=== PATIENT | female | born 1945 | race Caucasian/White ===

== ENCOUNTER → 2020-06-08 | Outpatient (REF) | payer MEDICARE, BC ==
[2020-08-13 08:58] LABS: GLUCOSE, FASTING SEE SEPARATE REPORT MG/DL (70-100)
== END ==
LOC: M WUC 07:10
PROVIDERS: ATTEND Family Medicine
DX: R79.89 Other specified abnormal findings of blood chemistry (principal); E78.2 Mixed hyperlipidemia

== ENCOUNTER → 2020-09-03 | Outpatient (CLI) | payer MEDICARE, BC | LOC: M WUC 14:18 | PROVIDERS: ATTEND Family Medicine | DX: E11.9 Type 2 diabetes mellitus without complications (principal) ==

== ENCOUNTER → 2020-10-19 | Outpatient (CLI) | payer SELFPAY | LOC: M LABSMTC 15:08 | PROVIDERS: ATTEND Pediatrics | DX: Z20.828 Contact with and (suspected) exposure to other viral communicable diseases (principal) ==

== ENCOUNTER → 2020-12-08 | Outpatient (CLI) | payer MEDICARE, BC ==
[2020-12-08 15:51] LABS: HEMOGLOBIN A1c 6.9 %
== END ==
LOC: M WUC 10:43
PROVIDERS: ATTEND Family Medicine
DX: E11.9 Type 2 diabetes mellitus without complications (principal)

== ENCOUNTER → 2021-02-09 | Outpatient (REF) | payer MEDICARE, BC ==
[2021-02-09 16:54] LABS: HEMOGLOBIN A1c 7.5 %
== END ==
LOC: M WUC 15:52 → M LAB REF 15:52
PROVIDERS: ATTEND Family Medicine
DX: E11.9 Type 2 diabetes mellitus without complications (principal)

== ENCOUNTER → 2021-04-16 | Outpatient (CLI) | payer MEDICARE, BC ==
[2021-04-16 15:32] LABS: HEMATOCRIT 41.9 % (36.0-47.0); HEMOGLOBIN 13.2 g/dl (12.0-15.5); MEAN CORPUSCULAR HEMOGLOBIN 30.6 pg (27.0-33.0); MEAN CORPUSCULAR HGB CONC 31.5 g/dl (32.0-36.5); PLATELET COUNT, AUTOMATED 374 10^3/uL (150-450); RED BLOOD COUNT 4.32 10^6/uL (4.00-5.40); WHITE BLOOD COUNT 10.8 10^3/uL (4.0-10.0)
[2021-04-16 15:37] LABS: CHOLESTEROL RISK RATIO 2.339 (<5); URIC ACID 4.4 MG/DL (2.6-6.0)
== END ==
LOC: M WUC 13:45
PROVIDERS: ATTEND Family Medicine
DX: Z00.00 Encounter for general adult medical examination without abnormal findings (principal); E78.5 Hyperlipidemia, unspecified; N18.30 Chronic kidney disease, stage 3 unspecified

== ENCOUNTER → 2021-07-07 | Outpatient (CLI) | payer MEDICARE, BC ==
[2021-07-07 12:46] LABS: HEMOGLOBIN A1c 6.8 %
[2021-07-07 12:54] LABS: MAU/CREAT RATIO 12.8 MCG/MG (0.0-30.0)
[2021-07-07 12:58] LABS: ALBUMIN 3.4 GM/DL (3.2-5.2); BILIRUBIN,TOTAL 0.5 MG/DL (0.2-1.0); CALCIUM LEVEL 8.2 MG/DL (8.8-10.2); CREATININE FOR GFR 1.03 MG/DL (0.55-1.30); GLOMERULAR FILTRATION RATE 55.9 (>39); POTASSIUM SERUM 4.1 MEQ/L (3.5-5.1); THYROID STIMULATING HORMONE 2.38 uIU/ML (0.358-3.740); TOTAL PROTEIN 6.3 GM/DL (6.4-8.2)
== END ==
LOC: M WUC 09:45
PROVIDERS: ATTEND Family Medicine
DX: E11.9 Type 2 diabetes mellitus without complications (principal); R53.83 Other fatigue

== ENCOUNTER 2021-07-28 16:12 | Observation (INO) | payer MEDICARE, BC ==
[~2021-07-28] VITALS: Ht 157.5 cm; Wt 78.7 kg
[2021-07-28] MEDS ORDERED: FLUT11IN INH ×2 (16:20→21:43)
[2021-07-28] MEDS ORDERED: LISI40TA4 PO ×2 (16:20→21:43)
[2021-07-28] MEDS ORDERED: ATOR1TAB21 PO ×2 (16:20→21:43)
[2021-07-28] MEDS ORDERED: NAPR220C14 PO (16:20)
[2021-07-28] MEDS ORDERED: PROAAER10 INH ×2 (16:20→21:43)
[2021-07-28] MEDS ORDERED: CLAR10CA3 PO (16:21)
[2021-07-28] MEDS ORDERED: METF500T13 PO (16:21)
[2021-07-28] MEDS ORDERED: ACET-683 PO (16:21)
[2021-07-28] MEDS ORDERED: SIMV40TA20 PO (16:21)
--- NOTE | 2021-07-28 18:21 | REP ---
INDICATION: Syncope/near-syncope. COMPARISON: None. FINDINGS: The technique utilized in obtaining the radiograph has magnified the cardiac silhouette and accentuated the interstitial markings. The superior mediastinal structures are midline. The cardiac silhouette is unremarkable in size, shape, and position. The diaphragmatic surfaces of the lungs are regular, and the costophrenic angles are clear. The pulmonary guy are clear. The imaged osseous structures are intact. IMPRESSION: There is no acute cardiopulmonary disease. <Electronically signed by Justo Olivia > 07/28/21 [id number]
[2021-07-28 18:33] LABS: BASO # 0.1 10^3/uL (0.0-0.2); BASO % 0.4 % (0.0-1.0); EOS # 0.1 10^3/uL (0.0-0.5); EOS % 1.1 % (0.0-3.0); HEMATOCRIT 36.4 % (36.0-47.0); HEMOGLOBIN 12.1 g/dl (12.0-15.5); LYMPH # 3.9 10^3/uL (1.5-5.0); LYMPH % 29.3 % (24.0-44.0); MEAN CORPUSCULAR HEMOGLOBIN 31.8 pg (27.0-33.0); MEAN CORPUSCULAR HGB CONC 33.2 g/dl (32.0-36.5); MEAN CORPUSCULAR VOLUME 95.8 fl (80.0-96.0); MONO # 0.7 10^3/uL (0.0-0.8); MONO % 5.1 % (2.0-8.0); NEUTROPHILS # 8.5 10^3/uL (1.5-8.5); NEUTROPHILS % 63.6 % (36.0-66.0); PLATELET COUNT, AUTOMATED 373 10^3/uL (150-450); WHITE BLOOD COUNT 13.3 10^3/uL (4.0-10.0)
--- NOTE | 2021-07-28 18:44 | REPVR ---
PROCEDURE INFORMATION: Exam: CT Head Without Contrast Exam date and time: 07/28/2021 6:09 PM Age: 75 years old Clinical indication: Syncope and collapse TECHNIQUE: Imaging protocol: Computed tomography of the head without contrast. Radiation optimization: All CT scans at this facility use at least one of these dose optimization techniques: automated exposure control; mA and/or kV adjustment per patient size (includes targeted exams where dose is matched to clinical indication); or iterative reconstruction. COMPARISON: No relevant prior studies available. FINDINGS: Brain: There is mild parenchymal volume loss. White matter changes are demonstrated in the subcortical, centrum semiovale and periventricular white matter consistent with chronic age related small vessel ischemic changes. There is mild diffuse cerebellar atrophy. Cerebral ventricles: The degree of ventricular dilatation is normal for age and/or degree of atrophy present. Paranasal sinuses: Inflammatory changes right sphenoid sinus. Mastoid air cells: Visualized mastoid air cells are well aerated. Bones/joints: Unremarkable. No acute fracture. Soft tissues: Unremarkable. IMPRESSION: 1. There is mild parenchymal volume loss. White matter changes are demonstrated in the subcortical, centrum semiovale and periventricular white matter consistent with chronic age related small vessel ischemic changes. 2. The degree of ventricular dilatation is normal for age and/or degree of atrophy present. 3. There is mild diffuse cerebellar atrophy. Electronically signed by: Sadi Luque On 07/28/2021 18:44:46 PM
[2021-07-28 18:55] LABS: BLOOD UREA NITROGEN 11 MG/DL (7-18); CALCIUM LEVEL 8.7 MG/DL (8.8-10.2); CARBON DIOXIDE LEVEL 27 MEQ/L (21-32); CHLORIDE LEVEL 103 MEQ/L (98-107); CK-MB VALUE MASS 1.4 NG/ML (<3.6); CPK CREATINE PHOSPHOKINASE 57 U/L (26-192); CREATININE FOR GFR 1.01 MG/DL (0.55-1.30); GLOMERULAR FILTRATION RATE 57.2 (>39); GLUCOSE, FASTING 121 MG/DL (70-100); MB/CK RELATIVE INDEX 2.46 (< OR =4); POTASSIUM SERUM 4.4 MEQ/L (3.5-5.1); SODIUM LEVEL 139 MEQ/L (136-145); TROPONIN I < 0.02 NG/ML (< 0.10)
--- NOTE | 2021-07-28 19:14 | ECGEPIP ---
[facility] - ED Test Date: 2021-07-28 Pat Name: KAYLEY SALINAS Department: Room: - Gender: Female Rn Training: : 1945 Requested By: Rubens Chavis Order Number: [id number] Reading MD: Kalee Wolf Measurements Intervals [place] Rate: 94 P: 89 [place]: 136 QRS: -9 QRSD: 74 T: 33 QT: 356 QTc: 445 Interpretive Statements Normal sinus rhythm Low voltage QRS Inferior infarct , age undetermined prwp No prior Electronically Signed on 07-28-2021 19:14:20 EDT by Kalee Wolf
[2021-07-28] MEDS ORDERED: ACETAMINOPHEN TAB 650MG DOSE (2X325MG) PO PRN (19:35)
[2021-07-28] MEDS ORDERED: MAALOX 30 ML SUSP *UDC PO PRN (19:35)
[2021-07-28] MEDS ORDERED: MOM 30ML SUSPENSION UDC PO PRN (19:35)
--- NOTE | 2021-07-28 19:36 | HPEPDOC ---
[facility] Medical History & Physical Date of Admission Jul 28, 2021 Date of Service: Jul 28, 2021 Attending Physician: KIAN TOLBERT MD History and Physical CHIEF COMPLAINT: [loss of consciousness] HISTORY OF PRESENT ILLNESS: [This is a 75 y/o female with a pmh of asthma, ckd3 and niddm2 who presents to our ED via EMS on 07/28 after a syncopal event. Patient states that she was simply sitting on a stool at the [employer] store trying to buy a new phone when suddenly she was overcome by a sensation of dizziness that she has a hard time describing. Patient states that she does not remember what happened next but states that she was told she fell and woke up on the floor. Patient states that she has never passed out before. Patient states she was not told how long she was on the floor for. Patient states that as of now, her only complaint is of still feeling a bit weak and "woozy." Patient denies any headaches, vision changes, weakness, slurred speech, recent illness, recent poor oral intake, room-spinning sensations, chest pain, palpitations, paresthesias, abd pain, n/v/d/c, fevers, chills, sob.] PAST MEDICAL HISTORY: 1. [See HPI PAST SURGICAL HISTORY: 1. [Breast biopsy]. 2. [Tubal ligation]. SOCIAL HISTORY: Tobacco use:[Denies] ETOH: [Denies] Illicit drug use: [Denies] FAMILY HISTORY: Mother - cva ALLERGIES: Please see below. REVIEW OF SYSTEMS: CONSTITUTIONAL: [Denies fevers, chills]. HEENT: [Denies uri sx]. CARDIOVASCULAR: [Denies chest pain, palpitations]. RESPIRATORY: [Denies sob, cough]. GASTROINTESTINAL: [Denies abd pain, n/v/d/c]. GENITOURINARY: [Denies dysuria]. SKIN: [Denies rash]. MUSCULOSKELETAL: [Denies acute joint/back pain]. NEUROLOGICAL: [See HPI]. ENDOCRINE: [Hx of DM]. HEMATOLOGIC/LYMPHATIC: [Denies hx of vte]. HOME MEDICATIONS: Please see below. PHYSICAL EXAMINATION: VITAL SIGNS: Please see below. GENERAL APPEARANCE: [This is a pleasant 75 y/o female who is alert and oriented to all questioning. She does not appear to be in any acute distress]. HEENT: [No mass or lesion. EOMI. No scleral icterus. Nares patent. Oral mucosa moist]. CARDIOVASCULAR: [Tachy rate, regular rhythm]. LUNGS: [Good air flow b/l. No wheezing, rales, rhonchi]. ABDOMEN: [Nondistended. Nontender]. MUSCULOSKELETAL: [No joint deformity]. EXTREMITIES: [No pedal edema. No overlying skin changes. Pulses intact]. NEUROLOGICAL: [Speech clear. Patient moves all fours freely. A+Ox3. No focal deficits]. PSYCHIATRIC: [Mood and affect appear appropriate]. LABORATORY DATA: See below. IMAGING: [CXR: FINDINGS: The technique utilized in obtaining the radiograph has magnified the cardiac silhouette and accentuated the interstitial markings. The superior mediastinal structures are midline. The cardiac silhouette is unremarkable in size, shape, and position. The diaphragmatic surfaces of the lungs are regular, and the costophrenic angles are clear. The pulmonary guy are clear. The imaged osseous structures are intact. IMPRESSION: There is no acute cardiopulmonary disease. Head CT: FINDINGS: Brain: There is mild parenchymal volume loss. White matter changes are demonstrated in the subcortical, centrum semiovale and periventricular white matter consistent with chronic age related small vessel ischemic changes. There is mild diffuse cerebellar atrophy. Cerebral ventricles: The degree of ventricular dilatation is normal for age and/or degree of atrophy present. Paranasal sinuses: Inflammatory changes right sphenoid sinus. Mastoid air cells: Visualized mastoid air cells are well aerated. Bones/joints: Unremarkable. No acute fracture. Soft tissues: Unremarkable. IMPRESSION: 1. There is mild parenchymal volume loss. White matter changes are demonstrated in the subcortical, centrum semiovale and periventricular white matter consistent with chronic age related small vessel ischemic changes. 2. The degree of ventricular dilatation is normal for age and/or degree of atrophy present. 3. There is mild diffuse cerebellar atrophy. ] MICROBIOLOGY: Please see below. ASSESSMENT: [This is a 75 y/o female with a pmh of asthma, ckd3 and niddm2 who presents to our ED via EMS on 07/28 after a syncopal event. Patient states that she was simply sitting on a stool at the [employer] store trying to buy a new phone when suddenly she was overcome by a sensation of dizziness that she has a hard time describing. Patient states that she does not remember what happened next but states that she was told she fell and woke up on the floor. Workup performed up to this point has been grossly negative]. . PLAN: 1. [Syncope - Most likely vasovagal. Need to r/o tia, cardiac source of syncope - CT head negative, will order f/u cta head/neck - ECHO w bubble study ordered for the am - will check a1c to r/o recurrent hypoglycemia - will check orthostatic vitals - EKG in the ED unremarkable, will keep patient on cardiac telemetry overnight - will check lipid panel - admit to med surg tele under obs for syncope w/u 2. DM - sliding scale coverage - hypoglycemic protocol 3. Asthma - not in acute exacerbation - continue at home inhalers - continue claritin 4. HTN - continue lisinopril, amlodipine 5. HLD - continue atorvastatin 6. Gout - continue allopurinol, colchicine 7 Class 1 obesity -complicates care DVT Prophylaxis - lovenox]. Vital Signs Vital Signs Date Time Temp Pulse Resp B/P (MAP) Pulse Ox O2 Delivery O2 Flow Rate FiO2 07/28/21 17:15 140/70 (93) 07/28/21 17:12 88 97 07/28/21 16:12 98.6 16 Room Air Laboratory Data Labs 24H Laboratory Tests 2 07/28/21 17:59: Immature Granulocyte % (Auto) 0.5, Neutrophils (%) (Auto) 63.6, Lymphocytes (%) (Auto) 29.3, Monocytes (%) (Auto) 5.1, Eosinophils (%) (Auto) 1.1, Basophils (%) (Auto) 0.4, Neutrophils # (Auto) 8.5, Lymphocytes # (Auto) 3.9, Monocytes # (Auto) 0.7, Eosinophils # (Auto) 0.1, Basophils # (Auto) 0.1, Nucleated Red Blood Cells % (auto) 0.0, Anion Gap 9, Glomerular Filtration Rate 57.2, Calcium Level 8.7L, Total Creatine Kinase 57, Creatine Kinase MB 1.4, Creatine Kinase MB Relative Index 2.46, Troponin I < 0.02, Thyroid Stimulating Hormone (TSH) 2.180 CBC/BMP Laboratory Tests 07/28/21 17:59 Home Medications Scheduled Acetaminophen (Tylenol Extra Strength) 500 Mg Tablet, 1,000 MG PO BID Albuterol Sulfate (Proair Hfa) 8.5 Gm Hfa.aer.ad, 2 PUFFS INH BID Allopurinol (Allopurinol) 100 Mg Tablet, 100 MG PO BID Amlodipine Besylate (Amlodipine Besylate) 10 Mg Tablet, 10 MG PO DAILY Ascorbic Acid/Vitamin E/Biotin (Hair Skin Nails-Biotin Gummies) 1 Each Tab.chew, 2 CHW PO DAILY Atorvastatin Calcium (Atorvastatin Calcium) 20 Mg Tablet, 20 MG PO QHS Budesonide/Formoterol (Symbicort 160-4.5 Mcg Inhaler) 6 Gm Hfa.aer.ad, 2 PUFF IN H BID Cholecalciferol (Vitamin D3) (Vitamin D3) 25 Mcg Tab.chew, 50 MCG PO DAILY Fluticasone Propionate (Flovent Hfa) 110 Mcg/Act Aer.w.adap, 2 PUFF INH BID Folic Acid/Multivit-Min/Lutein (Multi-Vitamin Gummies) 1 Each Tab.chew, 2 CHW PO DAILY Lisinopril (Lisinopril) 40 Mg Tablet, 40 MG PO DAILY Loratadine (Loratadine) 10 Mg Tablet, 10 MG PO DAILY Metformin HCl (Metformin HCl) 1,000 Mg Tablet, 1,000 MG PO BID Naproxen Sodium (Aleve) 220 Mg Tablet, 440 MG PO BID Vits A,C,E/Lutein/Minerals (Ocuvite with Lutein Tablet) 1 Each Tablet, 1 TAB PO DAILY Scheduled PRN Colchicine (Colchicine) 0.6 Mg Tablet, 0.6 MG PO DAILY PRN for GOUT SYMPTOMS Miscellaneous Medications Ascorbic Acid (Vitamin C) 500 Mg Tab.chew, 1,000 MG PO Allergies Coded Allergies: Sulfa (Sulfonamide Antibiotics) (Verified Allergy, Unknown, 07/28/21) niacin (Verified Allergy, Unknown, 07/28/21) A-FIB/CHADSVASC A-FIB History Current/History of A-Fib/PAF?: No ALYSHA WRIGHT Jul 28, 2021 19:35 KIAN TOLBERT MD Aug 02, 2021 03:03
[2021-07-28] MEDS ORDERED: ISOVUE-370 76% 100ML VIAL As Ordered ONE (19:45)
[2021-07-28 19:52] LABS: CHOLESTEROL LEVEL 146 MG/DL (<200); CHOLESTEROL RISK RATIO 2.517 (<5); HDL CHOLESTEROL 58 MG/DL (>40); LDL CHOLESTEROL 51 MG/DL (<100); NON-HDL-C 88 MG/DL; TRIGLYCERIDES LEVEL 183 MG/DL (<150)
--- NOTE | 2021-07-28 20:32 | REPVR ---
PROCEDURE INFORMATION: Exam: CT Angiography Head With Contrast, Arteriography Exam date and time: 07/28/2021 8:10 PM Age: 75 years old Clinical indication: Syncope and collapse TECHNIQUE: Imaging protocol: Computed tomography angiography of the head with contrast. Exam focused on the arteries. 3D rendering (Not supervised by radiologist): MIP and/or 3D reconstructed images were created by the technologist. Radiation optimization: All CT scans at this facility use at least one of these dose optimization techniques: automated exposure control; mA and/or kV adjustment per patient size (includes targeted exams where dose is matched to clinical indication); or iterative reconstruction. Contrast material: ISOVUE 370; Contrast volume: 75 ml; Contrast route: INTRAVENOUS (IV); COMPARISON: CT Head without contrast 07/28/2021 5:40 PM FINDINGS: ANTERIOR CIRCULATION: Right internal carotid artery: Atherosclerotic changes demonstrated in the right cavernous carotid artery. No significant stenosis. Right middle cerebral artery: Unremarkable. No occlusion or significant stenosis. No aneurysm. Right anterior cerebral artery: Unremarkable. No occlusion or significant stenosis. No aneurysm. Left internal carotid artery: Atherosclerotic changes demonstrated in the left cavernous carotid artery. No significant stenosis. Left middle cerebral artery: Unremarkable. No occlusion or significant stenosis. No aneurysm. Left anterior cerebral artery: Unremarkable. No occlusion or significant stenosis. No aneurysm. POSTERIOR CIRCULATION: Right vertebral artery: Unremarkable. No occlusion or significant stenosis. No aneurysm. Left vertebral artery: Unremarkable. No occlusion or significant stenosis. No aneurysm. Basilar artery: Unremarkable. No occlusion or significant stenosis. No aneurysm. Right posterior cerebral artery: Unremarkable. No occlusion or significant stenosis. No aneurysm. Left posterior cerebral artery: Unremarkable. No occlusion or significant stenosis. No aneurysm. Brain: No definite mass, mass effect, or midline shift. Cerebral ventricles: No ventriculomegaly. Bones/joints: Unremarkable. No acute fracture. Soft tissues: Unremarkable. IMPRESSION: 1. Atherosclerotic changes demonstrated in the right and left cavernous carotid arteries. No significant stenosis. 2. Otherwise unremarkable. Electronically signed by: Sadi Luque On 07/28/2021 20:32:33 PM
--- NOTE | 2021-07-28 20:35 | REPVR ---
PROCEDURE INFORMATION: Exam: CT Angiography Neck With Contrast Exam date and time: 07/28/2021 8:10 PM Age: 75 years old Clinical indication: Syncope and collapse TECHNIQUE: Imaging protocol: Computed tomography angiography of the neck with contrast. 3D rendering (Not supervised by radiologist): MIP and/or 3D reconstructed images were created by the technologist. Radiation optimization: All CT scans at this facility use at least one of these dose optimization techniques: automated exposure control; mA and/or kV adjustment per patient size (includes targeted exams where dose is matched to clinical indication); or iterative reconstruction. Contrast material: ISOVUE 370; Contrast volume: 75 ml; Contrast route: INTRAVENOUS (IV); COMPARISON: CT Head without contrast 07/28/2021 5:40 PM FINDINGS: Right common carotid artery: No stenosis. No dissection or occlusion. Right internal carotid artery: No stenosis of the extracranial segment. No dissection or occlusion. Right external carotid artery: No occlusion or stenosis of the origin. Left common carotid artery: No stenosis. No dissection or occlusion. Left internal carotid artery: No stenosis of the extracranial segment. No dissection or occlusion. Left external carotid artery: No occlusion or stenosis of the origin. Right vertebral artery: No stenosis. No dissection or occlusion. Left vertebral artery: No stenosis. No dissection or occlusion. Brachiocephalic/subclavian artery: Mild atherosclerotic changes at the origin of the left subclavian artery and within the brachiocephalic artery without significant narrowing. Soft tissues: Normal. No significant soft tissue swelling. Bones/joints: The cervical spine demonstrates moderate degenerative changes. IMPRESSION: 1. No evidence of a carotid artery stenosis. 2. Codominant vertebral arteries. REFERENCES: NASCET CRITERIA. The degree of internal carotid artery stenosis is based on NASCET criteria. Normal is no stenosis. Mild is less than 50% stenosis. Moderate is 50-69% stenosis. Severe is 70% to 99% stenosis. Total occlusion is no detectable patent lumen. Electronically signed by: Sadi Luque On 07/28/2021 20:35:44 PM
[2021-07-28 20:36] LABS: HEMOGLOBIN A1c 6.6 %
[2021-07-28] MEDS ORDERED: HumaLOG INSULIN (NovoLOG) PER UNIT SC SCH (21:00)
[2021-07-28] MEDS ORDERED: ATORVASTATIN 20 MG TAB PO SCH (21:00)
[2021-07-28] MEDS ORDERED: VITA1CHW8 PO (21:43)
[2021-07-28] MEDS ORDERED: ALLO100T PO (21:43)
[2021-07-28] MEDS ORDERED: HAIR1CHW2 PO (21:43)
[2021-07-28] MEDS ORDERED: LORA-622 PO (21:43)
[2021-07-28] MEDS ORDERED: METF10004 PO (21:43)
[2021-07-28] MEDS ORDERED: OCUVTAB PO (21:43)
[2021-07-28] MEDS ORDERED: SYMB16INH INH (21:43)
[2021-07-28] MEDS ORDERED: ACET-897 PO (21:43)
[2021-07-28] MEDS ORDERED: ALEV220T22 PO (21:43)
[2021-07-28] MEDS ORDERED: AMLO1TAB25 PO (21:43)
[2021-07-28] MEDS ORDERED: COLC0.6T47 PO (21:43)
[2021-07-28] MEDS ORDERED: MULTCHW12 PO (21:43)
[2021-07-28] MEDS ORDERED: VITA500C13 PO (21:43)
[2021-07-28 22:06] LABS: RSV AMPLIFICATION NEGATIVE (NEGATIVE)
[2021-07-28] MEDS ORDERED: GLUCOSE 4GM CHEW TABLET PO PRN (22:35)
[2021-07-28] MEDS ORDERED: DEXTROSE 50% 50 ML SYRINGE IV PRN (22:35)
[2021-07-28] MEDS ORDERED: GLUCAGON INJ 1MG VIAL SC PRN (22:35)
[2021-07-28] MEDS ORDERED: COLCHICINE 0.6 MG TABLET PO PRN (22:35)
[2021-07-29 02:30] VITALS: BP_SYST 145; BP_SYST 155; BP_SYST 157; BP_DIAS 73; BP_DIAS 74
[2021-07-29] MEDS: allopurinoL 100 MG TAB PO SCH ×2 (02:49→08:11)
[2021-07-29 06:00] VITALS: BP 143/73
[2021-07-29 06:14] VITALS: BP_SYST 132; BP_SYST 135; BP_SYST 140; BP_DIAS 72
[2021-07-29 06:35] LABS: HEMATOCRIT 33.8 % (36.0-47.0); MEAN CORPUSCULAR HEMOGLOBIN 30.8 pg (27.0-33.0); MEAN CORPUSCULAR HGB CONC 32.5 g/dl (32.0-36.5); MEAN CORPUSCULAR VOLUME 94.7 fl (80.0-96.0); PLATELET COUNT, AUTOMATED 333 10^3/uL (150-450); RED BLOOD COUNT 3.57 10^6/uL (4.00-5.40); WHITE BLOOD COUNT 9.9 10^3/uL (4.0-10.0)
[2021-07-29 06:37] LABS: APPEARANCE, URINE CLEAR (CLEAR); COLOR, URINE YELLOW (YELLOW)
[2021-07-29 06:38] LABS: BILIRUBIN, URINE AUTO NEGATIVE (NEGATIVE); BLOOD, URINE BLOOD NEGATIVE (NEGATIVE); GLUCOSE, URINE (UA) AUTO NEGATIVE (NEGATIVE); KETONE, URINE AUTO NEGATIVE (NEGATIVE); LEUKOCYTE ESTERASE, URINE AUTO 1+ (NEGATIVE); NITRITE, URINE AUTO NEGATIVE (NEGATIVE); PROTEIN, URINE AUTO NEGATIVE (NEGATIVE); RBC, URINE AUTO 0 /HPF (0-3); SPECIFIC GRAVITY URINE AUTO 1.033 (1.002-1.035); UROBILINOGEN, URINE AUTO 0.2 mg/dL (0.0-2.0); WBC, URINE AUTO 7 /HPF (0-3)
[2021-07-29 06:39] LABS: BACTERIA, URINE AUTO NEGATIVE (NEGATIVE); SQUAMOUS EPITHELIAL CELL UR AU 0 /HPF (0-6)
[2021-07-29 06:59] LABS: ALBUMIN 2.9 GM/DL (3.2-5.2); ALT/SGPT 33 U/L (12-78); BILIRUBIN,TOTAL 0.6 MG/DL (0.2-1.0); BLOOD UREA NITROGEN 14 MG/DL (7-18); CALCIUM LEVEL 8.2 MG/DL (8.8-10.2); CARBON DIOXIDE LEVEL 27 MEQ/L (21-32); CHLORIDE LEVEL 104 MEQ/L (98-107); CREATININE FOR GFR 0.77 MG/DL (0.55-1.30); GLOMERULAR FILTRATION RATE > 60.0 (>39); GLUCOSE, FASTING 117 MG/DL (70-100); MAGNESIUM LEVEL 1.6 MG/DL (1.8-2.4); SODIUM LEVEL 141 MEQ/L (136-145); TOTAL PROTEIN 5.6 GM/DL (6.4-8.2)
[2021-07-29] MEDS ORDERED: MAGNESIUM OXIDE 400MG TAB (MAG-OX) PO ONE (07:30)
[2021-07-29] MEDS ORDERED: SYMBICORT 160/4.5MCG INHALER 6GM INH SCH (08:00)
[2021-07-29] MEDS ORDERED: ALBUTEROL 90 MCG/ACT 8GM HFA INHALER INH SCH (08:00)
[2021-07-29] MEDS ORDERED: FLUTICASONE HFA 110 MCG 12 GM INHALER (FLOVENT) INH SCH (08:00)
[2021-07-29] MEDS: HumaLOG INSULIN (NovoLOG) PER UNIT SC SCH ×2 (08:08→12:18)
[2021-07-29 08:10] VITALS: BP 129/71
[2021-07-29] MEDS ORDERED: MAGNESIUM OXIDE 400MG TAB (MAG-OX) PO SCH (09:00)
[2021-07-29] MEDS ORDERED: LORATADINE 10 MG TAB PO SCH (09:00)
[2021-07-29] MEDS ORDERED: lisinopriL 40 MG TAB PO SCH (09:00)
[2021-07-29] MEDS ORDERED: ENOXAPARIN 40MG/0.4ML SYRINGE (J1650 PER 10MG) SC SCH (09:00)
[2021-07-29] MEDS ORDERED: OCUVITE 1 TAB PO SCH (09:00)
[2021-07-29] MEDS ORDERED: FLUBLOK(EGG FREE)(QUAD)INFLUENZA VACC 0.5ML SYRINGE 18YRS & OLDER IM ONE (09:00)
--- NOTE | 2021-07-29 14:46 | DS.PDOC ---
Discharge Summary General Date of Admission Jul 28, 2021 at 16:13 Date of Discharge July 29, 2021 Attending Physician: JOSE SULLIVAN MD Discharge Summary PROCEDURES PERFORMED DURING STAY: None. ADMITTING DIAGNOSES: - Syncope - DM - Asthma - HTN - HLD - Gout DISCHARGE DIAGNOSES: - Vasovagal syncope - DM type II - Asthma - HTN - HLD - Gout - Arthritis COMPLICATIONS/CHIEF COMPLAINT: Syncope. HISTORY OF PRESENT ILLNESS: Ms. Schwab is a 75-year-old female who presented to the ED in no acute distress after having a syncopal episode. She was in the [employer] store when she felt like a cloud was coming over her eyes and became clammy, warm, short of breath, dizzy, and weak. She denied chest pain, palpitations, abdominal pain, urinary or rectal incontinence, and numbness or tingling in her extremities. She lost consciousness and slid off a high-top chair falling towards her right side. EMS arrived on scene shortly after, but she declined and called her to bring her to the ED. She never had any similar previous episodes of syncope and denies h/o seizures, stroke, or orthostatic hypotension. Her past medical history included asthma, HTN, diabetes mellitus type II, HLD, gout, and arthritis. She was admitted for syncope workup. HOSPITAL COURSE: On admission, Ms. Schwab was ordered fall precautions and telemetry 48hrs. Metformin was discontinued 2/2 IV contrast dye administration, but all other home medications were continued for asthma, HTN, HLD, gout, and arthritis. Patient had low magnesium and given magnesium oxide. Orthostatic vital signs were stable; unlikely orthostatic hypotension. She denied chest pain, palpitations, or SOB. EKG showed normal sinus rhythm and no presence of an acute arrhythmia. Cardiac markers were not elevated. HgbA1c was 6.6. Patients glucose was baseline and she stated her diabetes was well-controlled; unlikely hypoglycemic etiology. Patient noted a bump in her right occipital region. Patient fell towards her r ight side and she may have hit her head. No hematoma, bleeding or laceration was seen, and she denied headache, changes in vision and seizure. CT head showed evidence of mild structural changes appropriate for patients age. CTA head showed evidence of atherosclerotic changes in bilateral cavernous carotid arteries but no stenosis. CTA neck also showed no evidence bilateral carotid artery stenosis; unlikely neurogenic etiology. Ms. Schwab has presented with vasovagal syncope. She denied dizziness, lightheadedness, headaches, changes in vision, chest pain, palpitations, SOB, abdominal pain, nausea, vomiting, diarrhea, constipation, pain or burning on urination, incontinence, generalized weakness, paresthesias in bilateral upper and lower extremities, fever, or chills during her hospital course. DISCHARGE MEDICATIONS: Please see below. ALLERGIES: Please see below. PHYSICAL EXAMINATION ON DISCHARGE: VITAL SIGNS: Please see below. GENERAL: Patient appears younger than stated age and sitting upright in the bed. HEENT: She has noticed a bump in her right occipital region 2/2 falling. There were no signs of laceration, hematoma, or active bleeding. EOMI. Mucus membranes moist. NECK: No JVD present. No carotid bruits bilaterally. CARDIOVASCULAR EXAMINATION: RRR. No murmurs, rubs, or gallops heard. 2+ radial pulses bilaterally. RESPIRATORY EXAMINATION: Clear to auscultation bilaterally. No wheezes, rales, or rhonchi. Non-labored breathing. ABDOMINAL EXAMINATION: Soft, slightly obese, non-tender to palpation. Bowels sounds present. EXTREMITIES: Some generalized soreness on her right side 2/2 falling. Sensation intact in bilateral upper and lower extremities. Strength 5/5 in bilateral upper and lower extremities. Pitting edema seen bilaterally; patient does not mention noticing a change in her legs. LE non-tender to palpation. Dorsalis pedis pulses present bilaterally. SKIN: No signs of laceration, hematoma, active bleeding, or ecchymoses. NEUROLOGICAL EXAMINATION: CN II-XII grossly intact. A&O X4. PSYCHIATRIC EXAMINATION: Mood is stable. LABORATORY DATA: Please see below. IMAGIN07/28/21 Chest X-Ray Impression: "There is no acute cardiopulmonary disease." 07/28/21 CT Head w/ Contrast Impression: "There is mild parenchymal volume loss. White matter changes are demonstrated in the subcortical, centrum semiovale and periventricular white matter consistent with chronic age related small vessel ischemic changes. The degree of ventricular dilatation is normal for age and/or degree of atrophy present. There is mild diffuse cerebellar atrophy." 07/28/21 CTA Head Impression: "Atherosclerotic changes demonstrated in the right and left cavernous carotid arteries. No significant stenosis. Otherwise unremarkable." 07/28/21 CTA Neck Impression: "No evidence of a carotid artery stenosis. Codominant vertebral arteries." 07/29/21 2D echocardiogram was ordered and pending. Patient should follow up outpatient with PCP for fluid overload and pending echo results. PROGNOSIS: Good. ACTIVITY: As tolerated. DIET: Consistent carbohydrate diet. DISPOSITION: Home. DISCHARGE INSTRUCTIONS: - Please continue all home medications for asthma, HTN, HLD, DM type II, gout, and arthritis. - Please follow up outpatient with PCP in 2-3 days for vasovagal syncope, pending 2D echocardiogram results, and fluid overload. - Please return to the hospital if symptoms return, or if experience new symptoms. ITEMS TO FOLLOWUP ON ON OUTPATIENT: - Vasovagal syncope - Generalized right-side soreness 2/2 fall - Pending 2D echocardiogram results - Signs of fluid overload - Low magnesium level DISCHARGE CONDITION: Stable. TIME SPENT ON DISCHARGE: 30 minutes. Vital Signs/I&Os Vital Signs Date Time Temp Pulse Resp B/P (MAP) Pulse Ox O2 Delivery O2 Flow Rate FiO2 07/29/21 08:10 99 129/71 07/29/21 06:00 97.9 20 95 Room Air I&O- Last 24 Hours up to 6 AM 07/29/21 06:00 Intake Total 220 ml Output Total 0 ml Balance 220 ml Laboratory Data Labs 24H Laboratory Tests 2 07/28/21 17:59: Immature Granulocyte % (Auto) 0.5, Neutrophils (%) (Auto) 63.6, Lymphocytes (%) (Auto) 29.3, Monocytes (%) (Auto) 5.1, Eosinophils (%) (Auto) 1.1, Basophils (%) (Auto) 0.4, Neutrophils # (Auto) 8.5, Lymphocytes # (Auto) 3.9, Monocytes # (Auto) 0.7, Eosinophils # (Auto) 0.1, Basophils # (Auto) 0.1, Nucleated Red Blood Cells % (auto) 0.0, Anion Gap 9, Glomerular Filtration Rate 57.2, Estimated Mean Plasma Glucose 143H, Hemoglobin A1c 6.6, Calcium Level 8.7L, Total Creatine Kinase 57, Creatine Kinase MB 1.4, Creatine Kinase MB Relative Index 2.46, Troponin I < 0.02, Triglycerides Level 183H, Total Cholesterol 146, LDL Cholesterol 51, Non-HDL Cholesterol (LDL + VLDL) 88, Total HDL Cholesterol 58, Cholesterol/HDL Ratio 2.517, Thyroid Stimulating Hormone (TSH) 2.180 07/28/21 20:49: Coronavirus (COVID-19)(PCR) NEGATIVE, Influenza Type A (RT-PCR) NEGATIVE, Influenza Type B (RT-PCR) NEGATIVE, Respiratory Syncytial Virus (PCR) NEGATIVE 07/29/21 02:41: Bedside Glucose (Misc Panel) 134H 07/29/21 06:05: Nucleated Red Blood Cells % (auto) 0.0, Anion Gap 10, Glomerular Filtration Rate > 60.0, Calcium Level 8.2L, Magnesium Level 1.6L, Total Bilirubin 0.6, Aspartate Amino Transf (AST/SGOT) 35, Alanine Aminotransferase (ALT/SGPT) 33, Alkaline Phosphatase 65, Total Protein 5.6L, Albumin 2.9L, Albumin/Globulin Ratio 1.1L 07/29/21 06:22: Urine Color YELLOW, Urine Appearance CLEAR, Urine pH 6.0, Urine Specific [place] 1.033, Urine Protein NEGATIVE, Urine Glucose (Auto)(UA) NEGATIVE, Urine Ketones (Auto) NEGATIVE, Urine Blood NEGATIVE, Urine Nitrite NEGATIVE, Urine Bilirubin NEGATIVE, Urine Urobilinogen 0.2, Urine Leukocyte Esterase (Auto) 1+H, Urine WBC (Auto) 7H, Urine RBC (Auto) 0, Urine Hyaline Casts (Auto) 0, Urine Bacteria (Auto) NEGATIVE, Urine Squamous Epithelial Cells 0, Urine Sperm (Auto) 07/29/21 12:01: Bedside Glucose (Misc Panel) 269H CBC/BMP Laboratory Tests 07/28/21 17:59 07/29/21 06:05 FSBS Laboratory Tests Test 07/29/21 02:41 07/29/21 12:01 Range/Units Bedside Glucose (Misc Panel) 134 269 83-110 MG/DL Discharge Medications Scheduled Acetaminophen (Tylenol Extra Strength) 500 Mg Tablet, 1,000 MG PO BID, (Re ported) Albuterol Sulfate (Proair Hfa) 8.5 Gm Hfa.aer.ad, 2 PUFFS INH BID, (Reported) Allopurinol (Allopurinol) 100 Mg Tablet, 100 MG PO BID, (Reported) Amlodipine Besylate (Amlodipine Besylate) 10 Mg Tablet, 10 MG PO DAILY, (Reported) Ascorbic Acid/Vitamin E/Biotin (Hair Skin Nails-Biotin Gummies) 1 Each Tab.chew, 2 CHW PO DAILY, (Reported) Atorvastatin Calcium (Atorvastatin Calcium) 20 Mg Tablet, 20 MG PO QHS, (Reported) Budesonide/Formoterol (Symbicort 160-4.5 Mcg Inhaler) 6 Gm Hfa.aer.ad, 2 PUFF INH BID, (Reported) Cholecalciferol (Vitamin D3) (Vitamin D3) 25 Mcg Tab.chew, 50 MCG PO DAILY, (Reported) Fluticasone Propionate (Flovent Hfa) 110 Mcg/Act Aer.w.adap, 2 PUFF INH BID, (Reported) Folic Acid/Multivit-Min/Lutein (Multi-Vitamin Gummies) 1 Each Tab.chew, 2 CHW PO DAILY, (Reported) Lisinopril (Lisinopril) 40 Mg Tablet, 40 MG PO DAILY, (Reported) Loratadine (Loratadine) 10 Mg Tablet, 10 MG PO DAILY, (Reported) Metformin HCl (Metformin HCl) 1,000 Mg Tablet, 1,000 MG PO BID, (Reported) Naproxen Sodium (Aleve) 220 Mg Tablet, 440 MG PO BID, (Reported) Vits A,C,E/Lutein/Minerals (Ocuvite with Lutein Tablet) 1 Each Tablet, 1 TAB PO DAILY, (Reported) Scheduled PRN Colchicine (Colchicine) 0.6 Mg Tablet, 0.6 MG PO DAILY PRN for GOUT SYMPTOMS, (Reported) Miscellaneous Medications Ascorbic Acid (Vitamin C) 500 Mg Tab.chew, 1,000 MG PO, (Reported) Allergies Coded Allergies: Sulfa (Sulfonamide Antibiotics) (Verified Allergy, Unknown, 07/28/21) niacin (Verified Allergy, Unknown, 07/28/21) GME ATTESTATION GME ATTESTATION My faculty preceptor for this patient encounter was physically present during the encounter and was fully available. All aspects of the patient interview, examination, medical decision making process, and medical care plan development were reviewed and approved by the faculty preceptor. The faculty preceptor is aware and concurs with the plan as stated in the body of this note and will attest to such by his/her cosignature. ATTENDING NOTE I, Jose Sullivan MD, have independently examined this patient and performed my o wn physical exam, as well as reviewed the documentation and edited where necessary. I have discussed in detail with the resident / student the findings and plan of treatment as documented by the resident / student and edited their note. I agree with their findings and treatment plan and have edited their documentation. Total time spent on this discharge including coordination of care, review of chart and actual documentation is around 35 minutes VASILE REMY OMS-3 Jul 29, 2021 14:46 Swathi Corea DO Jul 29, 2021 15:07 MAXIM HALL DO Jul 30, 2021 14:09 JOSE SULLIVAN MD Jul 30, 2021 14:55
== END 2021-07-29 14:51 | disposition home or self-care (01) ==
LOC: M ED 16:12 → M ED INP 16:13 → ENRESERV 07-29 00:22 → M MSPAV 07-29 02:22
PROVIDERS: ADMIT Internal Medicine; ATTEND Internal Medicine
DX: R55 Syncope and collapse (principal); E83.42 Hypomagnesemia; I67.82 Cerebral ischemia; R60.0 Localized edema; E11.22 Type 2 diabetes mellitus with diabetic chronic kidney disease; J45.909 Unspecified asthma, uncomplicated; I12.9 Hypertensive chronic kidney disease with stage 1 through stage 4 chronic kidney disease, or unspecified chronic kidney disease; E78.5 Hyperlipidemia, unspecified; M10.9 Gout, unspecified; M19.90 Unspecified osteoarthritis, unspecified site; N18.30 Chronic kidney disease, stage 3 unspecified; Z79.899 Other long term (current) drug therapy; Z79.51 Long term (current) use of inhaled steroids; Z79.1 Long term (current) use of non-steroidal anti-inflammatories (NSAID); Z88.2 Allergy status to sulfonamides; Z88.8 Allergy status to other drugs, medicaments and biological substances
CPT/HCPCS: 36415; 70450; 70496; 70498; 71045; 80048; 80053; 80061; 81001; 82550; 82553; 83036; 83735; 84443; 84484; 85025; 85027; 87631; 90682; 93005; 93041; 94760; 96372; 99285; G0008; G0378; J1650; Q9967

== ENCOUNTER → 2021-09-10 | Outpatient (REF) | payer MEDICARE, BC ==
[~2021-09-10] MED LIST: ACET-683 PO; ACET-897 PO; ALEV220T22 PO; ALLO100T PO; AMLO1TAB25 PO; ATOR1TAB21 PO; CLAR10CA3 PO; COLC0.6T47 PO; FLUT11IN INH; HAIR1CHW2 PO; LISI40TA4 PO; LORA-622 PO; METF10004 PO; METF500T13 PO; MULTCHW12 PO; NAPR220C14 PO; OCUVTAB PO; PROAAER10 INH; SIMV40TA20 PO; SYMB16INH INH; VITA1CHW8 PO; VITA500C13 PO
[2021-09-10 17:33] LABS: APPEARANCE, URINE CLOUDY (CLEAR); BACTERIA, URINE AUTO NEGATIVE (NEGATIVE); BILIRUBIN, URINE AUTO 1+ (NEGATIVE); BLOOD, URINE BLOOD NEGATIVE (NEGATIVE); COLOR, URINE YELLOW (YELLOW); GLUCOSE, URINE (UA) AUTO NEGATIVE (NEGATIVE); KETONE, URINE AUTO NEGATIVE (NEGATIVE); LEUKOCYTE ESTERASE, URINE AUTO 2+ (NEGATIVE); MUCUS, URINE SMALL (NEGATIVE); NITRITE, URINE AUTO NEGATIVE (NEGATIVE); PROTEIN, URINE AUTO 1+ mg/dL (NEGATIVE); RBC, URINE AUTO 0 /HPF (0-3); SPECIFIC GRAVITY URINE AUTO 1.032 (1.002-1.035); SQUAMOUS EPITHELIAL CELL UR AU 8 /HPF (0-6); WBC, URINE AUTO 4 /HPF (0-3)
== END ==
LOC: M SFHCPLAZ 16:55
PROVIDERS: ATTEND Physician Assistant Medical
DX: R30.0 Dysuria (principal)
CPT/HCPCS: 81001; 81002; 87086; G0463

== ENCOUNTER → 2022-03-25 | Outpatient (CLI) | payer MEDICARE, BC ==
[~2022-03-25] MED LIST changes: -VITA500C13 PO; +VITA500C17 PO
[2022-03-25 13:34] LABS: BASO % 0.3 % (0.0-1.0); EOS # 0.1 10^3/uL (0.0-0.5); EOS % 1.3 % (0.0-3.0); HEMATOCRIT 38.6 % (36.0-47.0); HEMOGLOBIN 12.3 g/dl (12.0-15.5); LYMPH # 3.6 10^3/uL (1.5-5.0); LYMPH % 34.7 % (24.0-44.0); MEAN CORPUSCULAR HEMOGLOBIN 31.1 pg (27.0-33.0); MEAN CORPUSCULAR HGB CONC 31.9 g/dl (32.0-36.5); MEAN CORPUSCULAR VOLUME 97.7 fl (80.0-96.0); MONO # 0.6 10^3/uL (0.0-0.8); MONO % 5.6 % (2.0-8.0); NEUTROPHILS % 57.6 % (36.0-66.0); PLATELET COUNT, AUTOMATED 358 10^3/uL (150-450); RED BLOOD COUNT 3.95 10^6/uL (4.00-5.40); WHITE BLOOD COUNT 10.4 10^3/uL (4.0-10.0)
[2022-03-25 13:45] LABS: INR 0.88; PROTHROMBIN TIME 12.3 SECONDS (12.7-14.5)
[2022-03-25 13:48] LABS: ALBUMIN 3.8 GM/DL (3.2-5.2); BILIRUBIN,TOTAL 0.4 MG/DL (0.2-1.0); CALCIUM LEVEL 9.3 MG/DL (8.8-10.2); CHOLESTEROL RISK RATIO 3.14 (<5); GLOMERULAR FILTRATION RATE 57.7 (>39); POTASSIUM SERUM 4.7 MEQ/L (3.5-5.1); PTH INTACT 44.1 PG/ML (18.5-88.0); TOTAL 25(OH) VITAMIN D 28.6 NG/ML (30.0-100.0); TOTAL PROTEIN 6.7 GM/DL (6.4-8.2)
[2022-03-25 14:17] LABS: MALB URINE SIEMENS 24.4 MG/L; MAU/CREAT RATIO 6.7 MCG/MG (0.0-30.0)
[2022-03-25 15:26] LABS: HEMOGLOBIN A1c 6.4 %
== END ==
LOC: M PLALAB 10:46
PROVIDERS: ATTEND Physician Assistant Medical
DX: I10 Essential (primary) hypertension (principal); Z79.01 Long term (current) use of anticoagulants

== ENCOUNTER → 2022-06-01 | Outpatient (CLI) | payer MEDICARE, BC ==
[~2022-06-01] MED LIST changes: +AMLO1TAB24 PO; +METF-839 PO; +MULT-40 PO; +OMEP-173 PO
[2022-06-01 15:33] LABS: BASO % 0.4 % (0.0-1.0); EOS # 0.2 10^3/uL (0.0-0.5); EOS % 1.8 % (0.0-3.0); HEMATOCRIT 39.5 % (36.0-47.0); HEMOGLOBIN 12.6 g/dl (12.0-15.5); LYMPH # 3.4 10^3/uL (1.5-5.0); LYMPH % 34.2 % (24.0-44.0); MEAN CORPUSCULAR HEMOGLOBIN 30.8 pg (27.0-33.0); MEAN CORPUSCULAR HGB CONC 31.9 g/dl (32.0-36.5); MEAN CORPUSCULAR VOLUME 96.6 fl (80.0-96.0); MONO # 0.6 10^3/uL (0.0-0.8); MONO % 5.8 % (2.0-8.0); NEUTROPHILS # 5.8 10^3/uL (1.5-8.5); NEUTROPHILS % 57.5 % (36.0-66.0); PLATELET COUNT, AUTOMATED 356 10^3/uL (150-450); RED BLOOD COUNT 4.09 10^6/uL (4.00-5.40)
[2022-06-01 15:58] LABS: BLOOD UREA NITROGEN 15 MG/DL (7-18); CALCIUM LEVEL 9.2 MG/DL (8.8-10.2); CARBON DIOXIDE LEVEL 27 MEQ/L (21-32); CHLORIDE LEVEL 107 MEQ/L (98-107); CREATININE FOR GFR 0.93 MG/DL (0.55-1.30); GLOMERULAR FILTRATION RATE > 60.0 (>39); GLUCOSE, FASTING 137 MG/DL (70-100); POTASSIUM SERUM 4.5 MEQ/L (3.5-5.1); SODIUM LEVEL 141 MEQ/L (136-145)
== END ==
LOC: M PLALAB 11:55
PROVIDERS: ATTEND Physician Assistant Medical
DX: I10 Essential (primary) hypertension (principal); E11.9 Type 2 diabetes mellitus without complications

== ENCOUNTER → 2022-06-06 | Outpatient (CLI) | payer MEDICARE, BC | LOC: M LABSMTC 10:33 | PROVIDERS: ATTEND Anesthesiology | DX: Z01.812 Encounter for preprocedural laboratory examination (principal) ==

== ENCOUNTER 2022-06-10 06:20 | Day surgery (SDC) | payer MEDICARE, BC ==
[~2022-06-10] VITALS: Ht 157.5 cm; Wt 77.6 kg
[~2022-06-10 06:20] MED LIST changes: +OFLOXACIN 0.3 % (OCUFLOX) OPTH SOL 5ML OS SCH; +PHENYLEPHRINE 2.5% OPHTH SOL 2ML OS SCH; +PROPARACAINE 0.5% OPHTH SOL 15ML OS ONE; +TROPICAMIDE 1% OPHTH SOLN 2ML OS SCH
[2022-06-10] MEDS ORDERED: BSS IRR 500ML/OMIDRIA 4ML IRR BAG (OR ONLY) As Ordered ONE (07:02)
[2022-06-10] MEDS ORDERED: LIDOCAINE 1% SDV 5ML VIAL As Ordered ONE (07:02)
[2022-06-10] MEDS ORDERED: TRYPAN BLUE 0.06 % 2.25 ML OPHTH SYR (VISIONBLUE) As Ordered ONE (07:56)
[2022-06-10] MEDS ORDERED: fentaNYL 100 MCG/2 ML INJECTION As Ordered ONE (08:06)
[2022-06-10] MEDS ORDERED: MIDAZOLAM INJ 2MG/2ML VIAL (J2250 PER 1MG) As Ordered ONE (08:06)
[2022-06-10] MEDS ORDERED: CEFUROXIME 1MG/0.1ML INTRACAMERAL INJ As Ordered ONE (08:28)
[2022-06-10 09:04] VITALS: BP 155/72
[2022-06-10] MEDS ORDERED: ONDANSETRON 4MG 2ML VIAL IV PRN (09:10)
== END 2022-06-10 09:04 | disposition home or self-care (01) ==
LOC: M SDC 06:20
PROVIDERS: ATTEND Ophthalmology
DX: H25.12 Age-related nuclear cataract, left eye (principal); H21.562 Pupillary abnormality, left eye; I12.9 Hypertensive chronic kidney disease with stage 1 through stage 4 chronic kidney disease, or unspecified chronic kidney disease; E78.2 Mixed hyperlipidemia; J45.30 Mild persistent asthma, uncomplicated; E11.22 Type 2 diabetes mellitus with diabetic chronic kidney disease; M10.9 Gout, unspecified; N18.30 Chronic kidney disease, stage 3 unspecified; K21.9 Gastro-esophageal reflux disease without esophagitis; E55.9 Vitamin D deficiency, unspecified; M19.271 Secondary osteoarthritis, right ankle and foot; M19.272 Secondary osteoarthritis, left ankle and foot; J30.9 Allergic rhinitis, unspecified; Z79.899 Other long term (current) drug therapy; Z79.51 Long term (current) use of inhaled steroids; Z79.84 Long term (current) use of oral hypoglycemic drugs; Z88.2 Allergy status to sulfonamides; Z88.8 Allergy status to other drugs, medicaments and biological substances
CPT/HCPCS: 66984; J0697; J1097; J2250; J3010; V2632

== ENCOUNTER → 2022-06-21 | Outpatient (CLI) | payer MEDICARE, BC ==
[~2022-06-21] MED LIST changes: +DILT30TA PO; -OFLOXACIN 0.3 % (OCUFLOX) OPTH SOL 5ML OS SCH; -PHENYLEPHRINE 2.5% OPHTH SOL 2ML OS SCH; -PROPARACAINE 0.5% OPHTH SOL 15ML OS ONE; -TROPICAMIDE 1% OPHTH SOLN 2ML OS SCH
== END ==
LOC: M LABSMTC 11:46
PROVIDERS: ATTEND Anesthesiology
DX: Z01.818 Encounter for other preprocedural examination (principal); Z11.52 Encounter for screening for COVID-19

== ENCOUNTER 2022-06-24 07:13 | Day surgery (SDC) | payer MEDICARE, BC ==
[~2022-06-24] VITALS: Ht 157.5 cm; Wt 77.9 kg
[~2022-06-24 07:13] MED LIST changes: +BSS IRR 500ML/OMIDRIA 4ML IRR BAG (OR ONLY) As Ordered ONE; +CEFUROXIME 1MG/0.1ML INTRACAMERAL INJ As Ordered ONE; +LIDOCAINE 1% SDV 5ML VIAL As Ordered ONE; +POLYTRIM OPTH DROPS 10ML As Ordered ONE; +PROPARACAINE 0.5% OPHTH SOL 15ML OD ONE
[2022-06-24] MEDS: OFLOXACIN 0.3 % (OCUFLOX) OPTH SOL 5ML OD SCH ×2 (07:38→08:29)
[2022-06-24] MEDS: PHENYLEPHRINE 2.5% OPHTH SOL 2ML OD SCH ×2 (07:38→08:29)
[2022-06-24] MEDS: TROPICAMIDE 1% OPHTH SOLN 2ML OD SCH ×2 (07:39→08:29)
[2022-06-24] MEDS ORDERED: PHENYLEPHRINE HCL 10 % OPHTH. SOL 5ML OD SCH (08:10)
[2022-06-24] MEDS ORDERED: fentaNYL 100 MCG/2 ML INJECTION As Ordered ONE (08:32)
[2022-06-24] MEDS ORDERED: MIDAZOLAM INJ 2MG/2ML VIAL (J2250 PER 1MG) As Ordered ONE (08:32)
[2022-06-24 09:04] VITALS: BP 147/71
== END 2022-06-24 09:28 | disposition home or self-care (01) ==
LOC: M SDC 07:13
PROVIDERS: ATTEND Ophthalmology
DX: H25.11 Age-related nuclear cataract, right eye (principal); I10 Essential (primary) hypertension; E78.5 Hyperlipidemia, unspecified; E11.9 Type 2 diabetes mellitus without complications; M10.9 Gout, unspecified; J45.909 Unspecified asthma, uncomplicated; Z88.2 Allergy status to sulfonamides; Z79.84 Long term (current) use of oral hypoglycemic drugs; Z79.899 Other long term (current) drug therapy; Z79.51 Long term (current) use of inhaled steroids
CPT/HCPCS: 66984; J0697; J1097; J2250; J3010; V2632

== ENCOUNTER → 2022-07-14 | Outpatient (CLI) | payer MEDICARE, BC ==
[~2022-07-14] MED LIST changes: -BSS IRR 500ML/OMIDRIA 4ML IRR BAG (OR ONLY) As Ordered ONE; -CEFUROXIME 1MG/0.1ML INTRACAMERAL INJ As Ordered ONE; -LIDOCAINE 1% SDV 5ML VIAL As Ordered ONE; -POLYTRIM OPTH DROPS 10ML As Ordered ONE; -PROPARACAINE 0.5% OPHTH SOL 15ML OD ONE
== END ==
LOC: M WHC 13:37
PROVIDERS: ATTEND Physician Assistant Medical
DX: Z12.31 Encounter for screening mammogram for malignant neoplasm of breast (principal); M81.0 Age-related osteoporosis without current pathological fracture

== ENCOUNTER 2022-09-09 14:35 | Emergency (ER) | payer MEDICARE, BC ==
[~2022-09-09] VITALS: Ht 157.5 cm; Wt 79.2 kg
[2022-09-09] MEDS ORDERED: CELE1CAP7 (14:47)
[2022-09-09] MEDS ORDERED: dexameTHASONE 20MG/5ML VIAL (J1100 PER 1MG) XX ONE (16:45)
[2022-09-09 17:19] LABS: BASO % 0.3 % (0.0-1.0); EOS # 0.2 10^3/uL (0.0-0.5); EOS % 1.9 % (0.0-3.0); HEMATOCRIT 36.5 % (36.0-47.0); HEMOGLOBIN 11.4 g/dl (12.0-15.5); LYMPH # 3.1 10^3/uL (1.5-5.0); LYMPH % 30.9 % (24.0-44.0); MEAN CORPUSCULAR HEMOGLOBIN 30.1 pg (27.0-33.0); MEAN CORPUSCULAR HGB CONC 31.2 g/dl (32.0-36.5); MEAN CORPUSCULAR VOLUME 96.3 fl (80.0-96.0); MONO # 0.7 10^3/uL (0.0-0.8); MONO % 6.5 % (2.0-8.0); NEUTROPHILS % 59.9 % (36.0-66.0); PLATELET COUNT, AUTOMATED 294 10^3/uL (150-450); RED BLOOD COUNT 3.79 10^6/uL (4.00-5.40)
[2022-09-09 17:47] LABS: CALCIUM LEVEL 8.3 MG/DL (8.8-10.2); CREATININE FOR GFR 0.98 MG/DL (0.55-1.30); GLOMERULAR FILTRATION RATE 59.1 (>39); POTASSIUM SERUM 4.5 MEQ/L (3.5-5.1)
[2022-09-09 17:52] LABS: MB/CK RELATIVE INDEX 1.82 (< OR =4)
[2022-09-09 18:27] VITALS: BP 188/90
== END 2022-09-09 18:31 | disposition home or self-care (01) ==
LOC: M ED 14:35
DX: J40 Bronchitis, not specified as acute or chronic (principal); Z86.16 Personal history of COVID-19; E11.9 Type 2 diabetes mellitus without complications; G47.30 Sleep apnea, unspecified; N18.30 Chronic kidney disease, stage 3 unspecified; I95.9 Hypotension, unspecified
CPT/HCPCS: 36415; 71045; 80048; 82550; 82553; 84484; 85025; 87486; 87581; 87633; 87798; 99283; J1100

== ENCOUNTER → 2022-11-10 | Outpatient (CLI) | payer MEDICARE, BC ==
[~2022-11-10] MED LIST changes: +CELE1CAP7
== END ==
LOC: M SLEEP HO 13:10
PROVIDERS: ATTEND Internal Medicine Cardiovascular Disease
DX: G47.8 Other sleep disorders (principal)

== ENCOUNTER → 2022-12-16 | Outpatient (CLI) | payer MEDICARE, BC ==
[2022-12-16 15:35] LABS: BASO % 0.3 % (0.0-1.0); EOS # 0.2 10^3/uL (0.0-0.5); EOS % 1.6 % (0.0-3.0); HEMATOCRIT 36.8 % (36.0-47.0); HEMOGLOBIN 11.4 g/dl (12.0-15.5); LYMPH # 4.7 10^3/uL (1.5-5.0); MEAN CORPUSCULAR HEMOGLOBIN 30.8 pg (27.0-33.0); MEAN CORPUSCULAR VOLUME 99.5 fl (80.0-96.0); MONO # 0.6 10^3/uL (0.0-0.8); NEUTROPHILS # 4.6 10^3/uL (1.5-8.5); NEUTROPHILS % 45.7 % (36.0-66.0); PLATELET COUNT, AUTOMATED 334 10^3/uL (150-450); WHITE BLOOD COUNT 10.2 10^3/uL (4.0-10.0)
[2022-12-16 15:57] LABS: HEMOGLOBIN A1c 9.8 % (4.0-6.0)
[2022-12-16 16:05] LABS: CPK CREATINE PHOSPHOKINASE 67 U/L (34-145)
[2022-12-16 16:06] LABS: ALBUMIN 3.3 G/DL (3.2-5.2); ALKALINE PHOSPHATASE 140 U/L (46-116); ALT/SGPT 19 U/L (7.0-40); AST/SGOT 41 U/L (<34); BILIRUBIN,TOTAL 0.3 MG/DL (0.3-1.2); BLOOD UREA NITROGEN 19 MG/DL (9-23); CALCIUM LEVEL 8.7 MG/DL (8.3-10.6); CARBON DIOXIDE LEVEL 29 MMOL/L (20-31); CHLORIDE LEVEL 104 MMOL/L (98-107); CHOLESTEROL LEVEL 125 MG/DL (<200); CHOLESTEROL RISK RATIO 2.57 (<5); CREATININE FOR GFR 0.96 MG/DL (0.55-1.30); GLOMERULAR FILTRATION RATE > 60.0 (>39); GLUCOSE, FASTING 188 MG/DL (74-106); HDL CHOLESTEROL 48.5 MG/DL (>40); LDL CHOLESTEROL 37.9 MG/DL (<100); NON-HDL-C 77 MG/DL; POTASSIUM SERUM 4.7 MMOL/L (3.5-5.1); SODIUM LEVEL 139 MMOL/L (136-145); TOTAL PROTEIN 6.5 G/DL (5.7-8.2); TRIGLYCERIDES LEVEL 193 MG/DL (<150)
== END ==
LOC: M PLALAB 12:43
PROVIDERS: ATTEND Physician Assistant Medical
DX: E78.2 Mixed hyperlipidemia (principal); E11.9 Type 2 diabetes mellitus without complications; I10 Essential (primary) hypertension

== ENCOUNTER → 2022-12-23 | Outpatient (CLI) | payer MEDICARE, BC ==
[2022-12-23 17:00] LABS: CHOLESTEROL RISK RATIO 2.98 (<5); HDL CHOLESTEROL 47.2 MG/DL (>40); LDL CHOLESTEROL 43.6 MG/DL (<100)
== END ==
LOC: M WUC 11:11
PROVIDERS: ATTEND Internal Medicine Cardiovascular Disease
DX: E78.2 Mixed hyperlipidemia (principal)

== ENCOUNTER → 2023-05-09 | Outpatient (CLI) | payer MEDICARE, BC ==
[~2023-05-09] MED LIST changes: -FLUT11IN INH; +FLUT12AE6 INH
[2023-05-09 18:34] LABS: BASO # 0.1 10^3/uL (0.0-0.2); BASO % 0.4 % (0.0-1.0); EOS # 0.2 10^3/uL (0.0-0.5); EOS % 1.4 % (0.0-3.0); HEMATOCRIT 42.5 % (36.0-47.0); HEMOGLOBIN 13.1 g/dl (12.0-15.5); LYMPH # 5.4 10^3/uL (1.5-5.0); LYMPH % 32.9 % (24.0-44.0); MEAN CORPUSCULAR HEMOGLOBIN 29.6 pg (27.0-33.0); MEAN CORPUSCULAR HGB CONC 30.8 g/dl (32.0-36.5); MEAN CORPUSCULAR VOLUME 96.2 fl (80.0-96.0); MONO # 0.8 10^3/uL (0.0-0.8); MONO % 4.6 % (2.0-8.0); NEUTROPHILS # 9.6 10^3/uL (1.5-8.5); NEUTROPHILS % 58.6 % (36.0-66.0); PLATELET COUNT, AUTOMATED 428 10^3/uL (150-450); RED BLOOD COUNT 4.42 10^6/uL (4.00-5.40); WHITE BLOOD COUNT 16.3 10^3/uL (4.0-10.0)
[2023-05-09 18:59] LABS: CALCIUM LEVEL 9.7 MG/DL (8.3-10.6); CREATININE FOR GFR 1.25 MG/DL (0.55-1.30); GLOMERULAR FILTRATION RATE 44.5 (>39); POTASSIUM SERUM 4.4 MMOL/L (3.5-5.1)
== END ==
LOC: EEVIPCON 15:51 → M PLAIMG 15:51
PROVIDERS: ATTEND Student in an Organized Health Care Education/Training Program
DX: R05.8 Other specified cough (principal); Z79.899 Other long term (current) drug therapy

== ENCOUNTER → 2023-09-18 | Outpatient (CLI) | payer MEDICARE, BC ==
[~2023-09-18] MED LIST changes: -CELE1CAP7; +CELE1CAP99; +FURO20TA2 PO; +ROSU10TA6 PO
== END ==
LOC: M WUC 14:54
PROVIDERS: ATTEND Nurse Practitioner Family
DX: M18.11 Unilateral primary osteoarthritis of first carpometacarpal joint, right hand (principal)

== ENCOUNTER → 2023-10-19 | Outpatient (CLI) | payer MEDICARE, BC ==
[2023-10-19 15:59] LABS: BASO % 0.3 % (0.0-1.0); EOS # 0.2 10^3/uL (0.0-0.5); EOS % 1.7 % (0.0-3.0); HEMATOCRIT 39.9 % (36.0-47.0); HEMOGLOBIN 12.3 g/dl (12.0-15.5); LYMPH # 3.8 10^3/uL (1.5-5.0); LYMPH % 35.7 % (24.0-44.0); MEAN CORPUSCULAR HEMOGLOBIN 29.4 pg (27.0-33.0); MEAN CORPUSCULAR HGB CONC 30.8 g/dl (32.0-36.5); MEAN CORPUSCULAR VOLUME 95.2 fl (80.0-96.0); MONO # 0.6 10^3/uL (0.0-0.8); MONO % 5.9 % (2.0-8.0); PLATELET COUNT, AUTOMATED 328 10^3/uL (150-450); RED BLOOD COUNT 4.19 10^6/uL (4.00-5.40); WHITE BLOOD COUNT 10.7 10^3/uL (4.0-10.0)
[2023-10-19 16:20] LABS: ALBUMIN 3.4 G/DL (3.2-5.2); ALKALINE PHOSPHATASE 181 U/L (46-116); ALT/SGPT 31 U/L (7.0-40); AST/SGOT 34 U/L (<34); BILIRUBIN,TOTAL 0.3 MG/DL (0.3-1.2); BLOOD UREA NITROGEN 14 MG/DL (9-23); CALCIUM LEVEL 9.1 MG/DL (8.3-10.6); CARBON DIOXIDE LEVEL 30 MMOL/L (20-31); CHLORIDE LEVEL 96 MMOL/L (98-107); CREATININE FOR GFR 0.74 MG/DL (0.55-1.30); GLOMERULAR FILTRATION RATE > 60.0 (>39); GLUCOSE, FASTING 368 MG/DL (74-106); POTASSIUM SERUM 4.7 MMOL/L (3.5-5.1); SODIUM LEVEL 134 MMOL/L (136-145); TOTAL PROTEIN 6.8 G/DL (5.7-8.2)
[2023-10-19 17:13] LABS: HEMOGLOBIN A1c > 14.0 % (4.0-6.0)
== END ==
LOC: M PLAIMG 14:02
PROVIDERS: ATTEND Physician Assistant Medical
DX: J45.30 Mild persistent asthma, uncomplicated (principal); E11.9 Type 2 diabetes mellitus without complications; I10 Essential (primary) hypertension; M47.816 Spondylosis without myelopathy or radiculopathy, lumbar region

== ENCOUNTER → 2023-12-13 | Day surgery (SDC) | payer MEDICARE, BC ==
[~2023-12-13] VITALS: Ht 157.5 cm; Wt 76.7 kg
[~2023-12-13] MED LIST changes: +ALBU2.5V10 INH; +AMLO25TA PO; +BYST2.5T2 PO; +FLUTISP; +LANTINJ4 SC; +LIDOCAINE 2% 100MG/5ML SDV (FOR ANES.) As Ordered ONE; +TIZA2CAP PO; +VALS40TA9 PO; +propofoL 200 MG/20 ML VIAL As Ordered ONE
[2023-12-13] MEDS: NS 1,000 ML IV ONE (10:46)
[2023-12-13 11:40] VITALS: TEMP 97.5
[2023-12-13 11:57] VITALS: BP 132/63; O2SAT 96
== END | disposition home or self-care (01) ==
LOC: M OPP 10:21
PROVIDERS: ATTEND Surgery
DX: Z12.11 Encounter for screening for malignant neoplasm of colon (principal); G57.30 Lesion of lateral popliteal nerve, unspecified lower limb; E11.9 Type 2 diabetes mellitus without complications; G47.30 Sleep apnea, unspecified; Z79.02 Long term (current) use of antithrombotics/antiplatelets; Z79.1 Long term (current) use of non-steroidal anti-inflammatories (NSAID); Z79.3 Long term (current) use of hormonal contraceptives; Z79.51 Long term (current) use of inhaled steroids; Z79.899 Other long term (current) drug therapy; Z88.2 Allergy status to sulfonamides; Z88.8 Allergy status to other drugs, medicaments and biological substances

== ENCOUNTER → 2024-06-03 | Outpatient (CLI) | payer MEDICARE, BC ==
[~2024-06-03] MED LIST changes: -LIDOCAINE 2% 100MG/5ML SDV (FOR ANES.) As Ordered ONE; -ROSU10TA6 PO; +ROSU10TA61 PO; -propofoL 200 MG/20 ML VIAL As Ordered ONE
[2024-06-03 17:20] LABS: HEMOGLOBIN A1c 6.9 % (4.0-6.0)
== END ==
LOC: M LAB 14:23
PROVIDERS: ATTEND Physician Assistant Medical
DX: E11.9 Type 2 diabetes mellitus without complications (principal)

== ENCOUNTER 2024-08-02 14:23 | Emergency (ER) | payer MEDICARE, BC ==
[~2024-08-02] VITALS: Ht 152.4 cm; Wt 81.9 kg
[~2024-08-02 14:23] MED LIST changes: -CELE1CAP4 PO; -SOMA350T PO
[2024-08-02] MEDS ORDERED: SOMA350T PO (18:01)
[2024-08-02] MEDS ORDERED: CELE1CAP4 PO (18:01)
[2024-08-02 18:12] VITALS: BP 166/86; TEMP 95.6; O2SAT 97
== END 2024-08-02 18:17 | disposition home or self-care (01) ==
LOC: M ED 14:23
DX: M54.50 Low back pain, unspecified (principal); E11.9 Type 2 diabetes mellitus without complications; I10 Essential (primary) hypertension; F41.9 Anxiety disorder, unspecified; Z88.2 Allergy status to sulfonamides; Z88.8 Allergy status to other drugs, medicaments and biological substances; Z79.1 Long term (current) use of non-steroidal anti-inflammatories (NSAID); Z79.51 Long term (current) use of inhaled steroids; Z79.810 Long term (current) use of selective estrogen receptor modulators (SERMs); Z79.899 Other long term (current) drug therapy; Z12.31 Encounter for screening mammogram for malignant neoplasm of breast; M81.0 Age-related osteoporosis without current pathological fracture

== ENCOUNTER → 2024-08-02 | Outpatient (CLI) | payer MEDICARE, BC ==
[~2024-08-02] MED LIST changes: +CELE1CAP4 PO; +SOMA350T PO
== END ==
LOC: M WHC 12:44
PROVIDERS: ATTEND Physician Assistant Medical
DX: Z12.31 Encounter for screening mammogram for malignant neoplasm of breast (principal); M81.0 Age-related osteoporosis without current pathological fracture

== ENCOUNTER → 2024-08-23 | Outpatient (CLI) | payer MEDICARE, BC ==
[~2024-08-23] MED LIST changes: +CELE1CAP4 PO; +SOMA350T PO
== END ==
LOC: M PLAIMG 13:18
PROVIDERS: ATTEND Physician Assistant Medical
DX: M47.819 Spondylosis without myelopathy or radiculopathy, site unspecified (principal); M51.370 Other intervertebral disc degeneration, lumbosacral region with discogenic back pain only

== ENCOUNTER → 2024-11-01 | Outpatient (CLI) | payer MEDICARE, BC ==
[2024-11-01 17:35] LABS: BASO % 0.4 % (0.0-1.0); EOS # 0.2 10^3/uL (0.0-0.5); EOS % 2.2 % (0.0-3.0); HEMATOCRIT 40.3 % (36.0-47.0); HEMOGLOBIN 12.2 g/dl (12.0-15.5); LYMPH # 4.6 10^3/uL (1.5-5.0); LYMPH % 42.9 % (24.0-44.0); MEAN CORPUSCULAR HEMOGLOBIN 27.2 pg (27.0-33.0); MEAN CORPUSCULAR HGB CONC 30.3 g/dl (32.0-36.5); MONO # 0.7 10^3/uL (0.0-0.8); MONO % 6.4 % (2.0-8.0); NEUTROPHILS # 5.2 10^3/uL (1.5-8.5); NEUTROPHILS % 47.9 % (36.0-66.0); PLATELET COUNT, AUTOMATED 370 10^3/uL (150-450); RED BLOOD COUNT 4.48 10^6/uL (4.00-5.40); WHITE BLOOD COUNT 10.8 10^3/uL (4.0-10.0)
[2024-11-01 18:08] LABS: ALBUMIN 3.4 G/DL (3.2-5.2); ALKALINE PHOSPHATASE 116 U/L (35-104); ALT/SGPT 24 U/L (7.0-40); AST/SGOT 25 U/L (<34); BILIRUBIN,TOTAL 0.2 MG/DL (0.3-1.2); BLOOD UREA NITROGEN 22 MG/DL (9-23); CALCIUM LEVEL 9.4 MG/DL (8.3-10.6); CARBON DIOXIDE LEVEL 28 MMOL/L (20-31); CHLORIDE LEVEL 108 MMOL/L (98-107); CREATININE FOR GFR 0.93 MG/DL (0.55-1.30); GLOMERULAR FILTRATION RATE > 60.0 (>39); GLUCOSE, FASTING 173 MG/DL (74-106); POTASSIUM SERUM 4.9 MMOL/L (3.5-5.1); SODIUM LEVEL 142 MMOL/L (136-145); TOTAL PROTEIN 6.6 G/DL (5.7-8.2)
[2024-11-01 18:10] LABS: TOTAL 25(OH) VITAMIN D 53.1 NG/ML (20.0-100.0)
[2024-11-01 19:15] LABS: HEMOGLOBIN A1c 7.6 % (4.0-6.0)
== END ==
LOC: M PLALAB 14:21
PROVIDERS: ATTEND Physician Assistant Medical
DX: E11.9 Type 2 diabetes mellitus without complications (principal); E55.9 Vitamin D deficiency, unspecified; E16.2 Hypoglycemia, unspecified; I10 Essential (primary) hypertension

== ENCOUNTER → 2024-11-08 | Outpatient (CLI) | payer MEDICARE, BC | LOC: M PLAIMG 11:55 → M PLARAD 11:55 | PROVIDERS: ATTEND Physician Assistant Medical | DX: M25.552 Pain in left hip (principal) ==

== ENCOUNTER → 2025-02-21 | Outpatient (CLI) | payer MEDICARE, BC ==
[2025-02-21 14:10] LABS: APPEARANCE, URINE HAZY (CLEAR); BACTERIA, URINE AUTO NEGATIVE (NEGATIVE); BILIRUBIN, URINE AUTO NEGATIVE (NEGATIVE); BLOOD, URINE BLOOD NEGATIVE (NEGATIVE); COLOR, URINE YELLOW (YELLOW); GLUCOSE, URINE (UA) AUTO 3+ mg/dL (NEGATIVE); KETONE, URINE AUTO NEGATIVE (NEGATIVE); LEUKOCYTE ESTERASE, URINE AUTO 3+ (NEGATIVE); MUCUS, URINE SMALL (NEGATIVE); NITRITE, URINE AUTO NEGATIVE (NEGATIVE); PROTEIN, URINE AUTO NEGATIVE (NEGATIVE); RBC, URINE AUTO 2 /HPF (0-3); SPECIFIC GRAVITY URINE AUTO 1.035 (1.002-1.035); SQUAMOUS EPITHELIAL CELL UR AU 4 /HPF (0-6); UROBILINOGEN, URINE AUTO 0.2 mg/dL (0.0-2.0); WBC, URINE AUTO 5 /HPF (0-3)
[2025-02-21 14:27] LABS: HEMATOCRIT 40.3 % (36.0-47.0); HEMOGLOBIN 12.2 g/dl (12.0-15.5); MEAN CORPUSCULAR HEMOGLOBIN 27.4 pg (27.0-33.0); MEAN CORPUSCULAR HGB CONC 30.3 g/dl (32.0-36.5); MEAN CORPUSCULAR VOLUME 90.4 fl (80.0-96.0); PLATELET COUNT, AUTOMATED 328 10^3/uL (150-450); RED BLOOD COUNT 4.46 10^6/uL (4.00-5.40); WHITE BLOOD COUNT 9.8 10^3/uL (4.0-10.0)
[2025-02-21 14:32] LABS: HEMOGLOBIN A1c 7.8 % (4.0-6.0)
[2025-02-21 14:42] LABS: ALBUMIN 3.4 G/DL (3.2-5.2); BILIRUBIN,TOTAL 0.3 MG/DL (0.3-1.2); CALCIUM LEVEL 9.1 MG/DL (8.3-10.6); CHOLESTEROL RISK RATIO 3.09 (<5); CREATININE FOR GFR 0.95 MG/DL (0.55-1.30); GLOMERULAR FILTRATION RATE 61.7 (>39); HDL CHOLESTEROL 51.4 MG/DL (>40); LDL CHOLESTEROL 72.6 MG/DL (<100); NON-HDL-C 107.6 MG/DL; POTASSIUM SERUM 4.7 MMOL/L (3.5-5.1); PTH INTACT 61.4 PG/ML (18.5-88.0); TOTAL PROTEIN 6.5 G/DL (5.7-8.2)
[2025-02-21 14:44] LABS: TOTAL 25(OH) VITAMIN D 60.3 NG/ML (20.0-100.0)
[2025-02-21 15:22] LABS: ATYPICAL LYMPH 39 % (0-5); EOSINOPHILS 3 % (0-3); LYMPHOCYTES 12 % (16-44); MONOCYTES 5 % (0-5); NEUTROPHILS 41 % (28-66)
[2025-02-21 15:25] LABS: PLATELET ESTIMATE NORMAL (NORMAL)
[2025-02-21 15:26] LABS: HYPOCHROMASIA 1+
== END ==
LOC: M PLALAB 09:42
PROVIDERS: ATTEND Physician Assistant Medical
DX: E78.2 Mixed hyperlipidemia (principal); E11.9 Type 2 diabetes mellitus without complications; I10 Essential (primary) hypertension; E55.9 Vitamin D deficiency, unspecified

== ENCOUNTER → 2025-08-08 | Outpatient (CLI) | payer MEDICARE, BC ==
[~2025-08-08] MED LIST changes: -COLC0.6T47 PO; +COLC0.6T53 PO; +LISI40TA10 PO; -LISI40TA4 PO; +LORA-1164 PO; -LORA-622 PO
== END ==
LOC: M WHC 09:54
PROVIDERS: ATTEND Physician Assistant Medical
DX: Z12.31 Encounter for screening mammogram for malignant neoplasm of breast (principal); R92.313 Mammographic fatty tissue density, bilateral breasts

== ENCOUNTER → 2025-09-01 | Outpatient (CLI) | payer MEDICARE, BC ==
[~2025-09-01] MED LIST changes: -ROSU10TA61 PO; +ROSU10TA90 PO
[2025-09-01 16:45] LABS: ESTIMATED AVERAGE GLUCOSE 183.0 MG/DL (60-110)
[2025-09-01 16:53] LABS: ALT/SGPT 26.0 U/L (7.0-40); AST/SGOT 32.0 U/L (<34); CALCIUM LEVEL 8.9 MG/DL (8.3-10.6); CARBON DIOXIDE LEVEL 28.0 MMOL/L (20-31); CHLORIDE LEVEL 104.0 MMOL/L (98-107); CREATININE FOR GFR 0.99 MG/DL (0.55-1.30); GLOMERULAR FILTRATION RATE 58.7 (>39); POTASSIUM SERUM 4.7 MMOL/L (3.5-5.1); SODIUM LEVEL 143.0 MMOL/L (136-145)
[2025-09-02 11:57] LABS: MAGNESIUM LEVEL 1.6 MG/DL (1.8-2.4)
[2025-09-02 12:01] LABS: TOTAL 25(OH) VITAMIN D 56.7 NG/ML (20.0-100.0)
== END ==
LOC: M LAB 15:40
PROVIDERS: ATTEND Physician Assistant Medical
DX: E11.9 Type 2 diabetes mellitus without complications (principal); I10 Essential (primary) hypertension; E78.2 Mixed hyperlipidemia; E55.9 Vitamin D deficiency, unspecified; R60.0 Localized edema

== ENCOUNTER → 2025-09-01 | Outpatient (CLI) | payer MEDICARE, BC | LOC: M RAD 14:27 | PROVIDERS: ATTEND Student in an Organized Health Care Education/Training Program | DX: R60.0 Localized edema (principal) ==